=== PATIENT | female | born 1990 | race African-American/Black ===

== ENCOUNTER 2020-07-07 05:51 | Emergency (ER) | payer OTHER ==
[~2020-07-07] VITALS: Ht 160 cm; Wt 86.2 kg
[2020-07-07 06:05] VITALS: BP 107/75
[2020-07-07 06:25] LABS: URINE BILIRUBIN NEGATIVE (Negative); URINE BLOOD NEGATIVE (Negative); URINE CLARITY CLEAR; URINE COLOR YELLOW; URINE GLUCOSE-RANDOM* NEGATIVE (Negative); URINE KETONES NEGATIVE (Negative); URINE LEUKOCYTES-REFLEX NEGATIVE (Negative); URINE NITRITE-REFLEX NEGATIVE (Negative); URINE PROTEIN (DIPSTICK) NEGATIVE (Negative); URINE SPECIFIC GRAVITY >= 1.030 (1.005-1.035); URINE UROBILINOGEN 0.2 E.U./dl (0.2-1.0)
[2020-07-07] MEDS ORDERED: METHOCARBAMOL500 M2 PO (06:32)
[2020-07-07] MEDS ORDERED: IBUPROFEN 800800 M1 PO (06:32)
== END 2020-07-07 07:16 | disposition home or self-care (01) ==
LOC: ER 05:51
PROVIDERS: Emergency Medicine
DX: S39.012A Strain of muscle, fascia and tendon of lower back, initial encounter (principal); X58.XXXA Exposure to other specified factors, initial encounter; Y93.89 Activity, other specified; Y92.89 Other specified places as the place of occurrence of the external cause; Y99.8 Other external cause status

== ENCOUNTER 2020-08-22 22:17 | Emergency (ER) | payer OTHER ==
[~2020-08-22] VITALS: Ht 160 cm; Wt 79.4 kg
[~2020-08-22 22:17] MED LIST: IBUPROFEN 800800 M1 PO; METHOCARBAMOL500 M2 PO
[2020-08-23 00:07] LABS: CALCIUM 8.8 mg/dL (8.5-10.1); POTASSIUM 3.1 mmol/L (3.5-5.1)
[2020-08-23 00:12] LABS: ABSOLUTE NEUTROPHILS 8.1 thou/uL (1.4-8.2); BASOPHILS 0.4 % (0.0-2.0); EOSINOPHILS 0.7 % (0.0-3.0); HEMATOCRIT 24.4 % (37.0-47.0); HEMOGLOBIN 7.9 gm/dL (12.0-15.0); LYMPHOCYTES 14.6 % (24.0-44.0); MCH 26.5 pg (26.0-34.0); MCHC 32.3 g/dL (28.0-37.0); MONOCYTES 4.9 % (1.0-8.0); PLATELET COUNT 142 thou/uL (150-400); POLYS 79.4 % (36.0-66.0); RBC 2.98 mil/uL (4.20-5.00); WBC 10.1 thou/uL (4.0-11.0)
[2020-08-23 00:23] LABS: INR 0.97; PROTIME 10.6 Seconds (10.5-12.1)
[2020-08-23 02:27] VITALS: BP 110/76
== END 2020-08-23 03:15 | disposition home or self-care (01) ==
LOC: ER 22:17
PROVIDERS: Emergency Medicine
DX: N93.9 Abnormal uterine and vaginal bleeding, unspecified (principal); D64.9 Anemia, unspecified

== ENCOUNTER 2020-09-03 17:58 | Emergency (ER) | payer OTHER ==
[~2020-09-03] VITALS: Ht 160 cm; Wt 81.7 kg
[2020-09-03] MEDS ORDERED: IRON159 MG PO (18:12)
[2020-09-03] MEDS ORDERED: NORCO5 PO (18:13)
[2020-09-03] MEDS ORDERED: DOXYCYCLINE 10100 MG PO (19:45)
[2020-09-03] MEDS ORDERED: PROMETH-CODEIN 65 ML PO (19:45)
[2020-09-03] MEDS ORDERED: PROAIR HFA8.5 GM INH (19:45)
[2020-09-03 20:02] VITALS: BP 130/79
== END 2020-09-03 20:00 | disposition home or self-care (01) ==
LOC: ER 17:58
DX: J18.9 Pneumonia, unspecified organism (principal); Z20.822 Contact with and (suspected) exposure to COVID-19